=== PATIENT | female | born 1950 | race Caucasian/White ===

== ENCOUNTER 2018-02-22 07:27 | Emergency (ER) | payer MEDICARE, BC ==
[2018-02-22] MEDS ORDERED: Proparacaine 0.5% Ophth Soln 15 ML Bottle EYERT PRN (07:36)
[2018-02-22] MEDS ORDERED: Fluorescein 1 MG Ophth Strip EYERT ONE (08:02)
[2018-02-22] MEDS ORDERED: Take Home: Acetaminophen/HYDROcodone 325-10 MG, 5 Tab Pack PO ONE (08:12)
[2018-02-22] MEDS ORDERED: Erythromycin Base 0.5% Ophth Oint 3.5 GM Tube EYERT ONE (08:12)
--- NOTE | 2018-02-22 08:16 | EDM.PDOC ---
ED HPI GENERAL MEDICAL PROBLEM - General Chief Complaint: ENT Problem Stated Complaint: right eye pain Time Seen by Provider: 02/22/18 08:01 Source of Information: Reports: Patient History Limitations: Reports: No Limitations - History of Present Illness INITIAL COMMENTS - FREE TEXT/NARRATIVE: Patient reports a burning pain of 8/10 to her right eye that started yesterday at around 730 pm. She states she has not been able to sleep at night. States she has had problems with dry eyes in the past. No other complaints this morning. Onset Date: 02/21/18 Duration: Getting Worse Location: Reports: Other (right eye) Quality: Reports: Sharp, Stabbing Severity: Moderate Right Eye Pain Score (Numeric/FACES): 8 - Related Data Allergies Allergy/AdvReac Type Severity Reaction Status Date / Time No Known Allergies Allergy Verified 02/22/18 07:57 Home Meds: Home Meds Budesonide/Formoterol [Symbicort 160-4.5 Mcg Inhaler] 1 puff INH BID 05/02/15 [ History] Hydroxychloroquine Sulfate 200 mg PO DAILY 02/22/18 [History] Social & Family History - Tobacco Use Smoking Status *Q: Unknown Ever Smoked ED ROS ENT - Review of Systems Review Of Systems: See Below Constitutional: Reports: No Symptoms HEENT: Reports: Eye Discharge, Eye Pain Respiratory: Reports: No Symptoms Cardiovascular: Reports: No Symptoms Endocrine: Reports: No Symptoms GI/Abdominal: Reports: No Symptoms : Reports: No Symptoms Musculoskeletal: Reports: No Symptoms Skin: Reports: No Symptoms Neurological: Reports: No Symptoms Psychiatric: Reports: No Symptoms Hematologic/Lymphatic: Reports: No Symptoms Immunologic: Reports: No Symptoms ED EXAM, ENT - Physical Exam Exam: See Below Exam Limited By: No Limitations General Appearance: Alert, WD/WN, Mild Distress Eye Exam: Left Eye: Normal Inspection (right eye is swollen with drainage), Bilateral Eye: EOMI, PERRL ED ENT PROCEDURES - Additional/Other Procedure(s) Other (Free Text) Procedure(s): Right eye numbed with proparicane drops, stained with fluorescein and examined under black light. Corneal abrasion seen immediately mid globe anterior surface Eye examination does not show posterior globe damage, optic nerve seen without inflammation or edema No complaints of vision changes Course - Vital Signs Last Recorded V/S: Last Vital Signs Temp 36.6 C 02/22/18 07:35 Pulse 77 02/22/18 07:35 Resp 16 02/22/18 07:35 BP 167/70 H 02/22/18 07:35 Pulse Ox 95 02/22/18 07:35 - Orders/Labs/Meds Orders: Active Orders 24 hr Category Date Time Status Proparacaine [Proparacaine 0.5% Ophth Soln] Med 02/22/18 07:36 Active 1 ml EYERT ASDIRECTED PRN Medication Orders Proparacaine HCl (Proparacaine 0.5% Ophth Soln) 1 ml EYERT ASDIRECTED PRN PRN Reason: Other Last Admin: 02/22/18 07:42 Dose: 2 drop Meds: Medications Generic Name Dose Route Start Last Admin Trade Name Freq PRN Reason Stop Dose Admin Proparacaine HCl 1 ml 02/22/18 07:36 02/22/18 07:42 Proparacaine 0.5% Ophth Soln EYERT 2 drop ASDIRECTED PRN Administration Other Discontinued Medications Generic Name Dose Route Start Last Admin Trade Name Freq PRN Reason Stop Dose Admin Fluorescein Sodium 1 mg 02/22/18 08:02 02/22/18 08:05 Ful-Antonia EYERT 02/22/18 08:03 1 mg ONETIME ONE Administration Departure - Departure Time of Disposition: 08:19 Disposition: Home, Self-Care 01 Condition: Good Clinical Impression: Corneal abrasion, right - Discharge Information Instructions: Corneal Abrasion, [id number] Additional Instructions: You have a corneal abrasion Please take the pain medication as needed for pain Apply the ointment up to 4 times a day to your eye Make a follow up appointment with your eye doctor Please call us with any questions or concerns - Problem List & Annotations (1) Corneal abrasion, right SNOMED Code(s): 36764050 Code(s): S05.01XA - INJ CONJUNCTIVA AND CORNEAL ABRASION W/O FB, RIGHT EYE, INIT Status: Acute Priority: Low Current Visit: Yes Qualifiers: Encounter type: initial encounter Qualified Code(s): S05.01XA - Injury of conjunctiva and corneal abrasion without foreign body, right eye, initial encounter - Problem List Review Problem List Initiated/Reviewed/Updated: Yes - My Orders Last 24 Hours: My Active Orders 02/22/18 07:36 Proparacaine [Proparacaine 0.5% Ophth Soln] 1 ml EYERT ASDIRECTED PRN - Assessment/Plan Last 24 Hours: My Active Orders 02/22/18 07:36 Proparacaine [Proparacaine 0.5% Ophth Soln] 1 ml EYERT ASDIRECTED PRN Assessment:: right corneal abrasion Plan: You have a corneal abrasion Please take the pain medication as needed for pain Apply the ointment up to 4 times a day to your eye Make a follow up appointment with your eye doctor Please call us with any questions or concerns
[2018-02-22] MEDS ORDERED: Gentamicin 0.3% Ophth Soln 5 ML Bottle EYERT SCH (12:00)
== END 2018-02-22 08:20 | disposition home or self-care (01) ==
LOC: VM.ED 07:27
DX: S05.01XA Injury of conjunctiva and corneal abrasion without foreign body, right eye, initial encounter (principal); X58.XXXA Exposure to other specified factors, initial encounter; Z79.899 Other long term (current) drug therapy
CPT/HCPCS: 99283; 99283-GF; A9270-GY